=== PATIENT | female | born 1975 | race African-American/Black ===

== ENCOUNTER 2019-11-28 00:40 | Day surgery (SDC) | payer OTHER, SELFPAY ==
[2019-11-21 09:26] VITALS: BMI 27.1
[2019-11-28] VITALS (12 sets, daily range): BP systolic 107–154; BP diastolic 43–77; PULSE 44–60; RESP 13–20; TEMP 36.2–36.9; O2SAT 97–100
[2019-11-28] MEDS: LACTATED RINGERS 1,000 ML 30 ML IV CONT ×2 (06:45→08:27)
--- NOTE | 2019-11-28 07:03 | WPDANESEPPF ---
Anes - Initial Pre Proc Eval Procedure: Operation Date: 11/28/19 07:30 Proposed Procedures p Hysteroscopy, Dilation And Curettage With Myosure, Removal Of Intrauterine Device - Alycia Skinner MD s Possible Laparoscopic Removal Intrauterine Device - Alycia Skinner MD s Laparoscopic Bilateral Tubal Ligation With Fallopian Rings - Alycia Skinner MD Date/Time: 11/28/19 07:03 Surgeon: Alycia Skinner MD Pre Op Diagnosis: Misplaced IUD/Uterine Fibroids/Desires Sterilizati Patient Data Age: 44 Gender: F Height: 5 ft 4 in Weight: 71.67 kg Last Vital Signs Temp 36.9 C 11/28/19 06:49 Pulse 60 11/28/19 06:49 Resp 16 11/28/19 06:49 BP 133/77 11/28/19 06:49 Pulse Ox 100 11/28/19 06:49 Allergies Allergy/AdvReac Type Severity Reaction Status Date / Time Sulfa (Sulfonamide Allergy Mild hives, Verified 11/28/19 06:25 Antibiotics) itching Home Medications Medication Instructions Recorded Confirmed Type darifenacin 15 mg PO DAILY 11/21/19 11/28/19 History ergocalciferol (vitamin D2) 50,000 unit PO 2XW 11/21/19 11/28/19 History Patient hx anesthesia problems: none Family hx anesthesia problems: none Anes - Eval Final PreProcedure Day of Procedure 11/28/19 07:03 Patient weight: overweight Heart: regular rate and rhythm Lungs: clear to auscultation Airway: Mallampati scale class II Neurological: alert and oriented Last oral intake: >/= 8 hours ASA classification: II Emergent: no Anesthetic plan: proceed Anesthesia type and monitoring: general ETT and standard monitoring Informed Consent: The patient's anesthetic plan and its attendant risks and benefits were discussed with the patient/family/POA. Questions were solicited and answers provided to the satisfaction of the patient/family/POA.
--- NOTE | 2019-11-28 07:07 | P.HP_ITS ---
History of Present Illness History of Present Illness Consent: Risks, benefits, and alternatives have been discussed and questions answered. Patient agrees to proceed with procedure. Chief complaint: Misplaced IUD/Uterine Fibroids/Desires Sterilizati Narrative: Jonna Huertas is a 44 year old female with IUD that has had short strings since 6 wks after placement. Last exam no strings visible and u/s states could represent IUD in uterus. KUB shows IUD in upper pelvis consistent with 13 wk size uterus. Patient with heavy cycles lately and u/s also shows know fibroids. Plan hysteroscopic removal of IUD and myosure of submucosal fibroids with D&C as well as laparoscopic BTL and if needed laparoscopic removal of IUD. Reviewed risks of infection, bleeding, injury to organs (eg. bowel, bladder, ureters, uterus, ovaries, and tubes), fluid imbalance, anesthesia, and ectopic vs intrauterine if tubal fails. Patient voices understanding and agrees to proceed. [facility] Past Medical History Medical History (Updated 11/28/19 @ 07:14 by Alycia Skinner MD) (normal spontaneous vaginal delivery) x 2 Surgical History Surgical History (Updated 11/28/19 @ 07:13 by Alycia Skinner MD) Status post breast reduction Meds Home Medications and Allergies Home Medications Medication Instructions Recorded Confirmed Type darifenacin 15 mg PO DAILY 11/21/19 11/28/19 History ergocalciferol (vitamin D2) 50,000 unit PO 2XW 11/21/19 11/28/19 History Allergies Allergy/AdvReac Type Severity Reaction Status Date / Time Sulfa (Sulfonamide Allergy Mild hives, Verified 11/28/19 06:25 Antibiotics) itching Vital Signs Vital Signs - 24 hr 11/28/19 06:49 Temperature 98.4 F Pulse Rate 60 Respiratory Rate 16 Blood Pressure 133/77 Pulse Oximetry 100 Exam Const: General: healthy appearing and alert Orientation/consciousness: patient oriented x3 Resp: Effort & Inspection: normal respiratory effort Auscultation: clear to auscultation bilaterally Cardio: Rate: regular rate Rhythm: regular rhythm GI: GI Palp: Yes Soft to palpation, No Tenderness to palpation present (GI) and No Palpable mass present : External Female Exam: normal external appearance Speculum Exam - Vagina: normal appearance of the vagina and normal vaginal discharge Speculum Exam - Cervix: normal appearance of the cervix (no strings present) Bimanual exam- vagina & uterus: consistency normal and enlarged Bimanual Exam- Adnexa, other: normal adnexae and No adnexal tenderness Neuro: General: patient oriented x3 Assessment and Plan Assessment and plan (1) IUD strings lost: Code(s): T83.32XA - Displacement of intrauterine contraceptive device, initial encounter Status: Acute Assessment and Plan: plan hysteroscopic removal and laparoscopoic removal if needed (2) Fibroids: Code(s): D21.9 - Benign neoplasm of connective and other soft tissue, unspecified Status: Acute Assessment and Plan: If submucosal, plan myosure resection as well as D&C (3) Encounter for sterilization: Code(s): Z30.2 - Encounter for sterilization Status: Acute Assessment and Plan: Plan laparoscopic BTL with falope rings
[2019-11-28] MEDS: IBUPROFEN IV 800 MG/200 ML 800 MG/200 ML BAG 400 MG IVPB (07:46)
--- NOTE | 2019-11-28 08:14 | SUR.OPER ---
Addendum entered by Sveta Hernandez, RN 11/28/19 08:19: AMENDMENT TO ORIGINAL FLUID COUNT: 1800CC OUT OF BAG, 300CC COLLECTED, DR. MA INFORMED, NO FURTHER ORDERS RECEIVED Original Note: EBL:5CC.M HYSTEROSCOPY [id number] OUT OF BAG, 1800CC COLLECTED
--- NOTE | 2019-11-28 08:30 | PM.OP ---
Procedure Note - Brief Procedure Note - Brief Date of procedure: 11/28/19 Pre-op diagnosis: Misplaced IUD/Uterine Fibroids/Desires Sterilizati Post-op diagnosis: same Procedure performed: hysteroscopic removal of IUD; D&C; laparoscopic BTL with falope rings and on L tube cautery Anesthesia: IFEANYI Surgeon: Alycia Skinner MD Estimated blood loss (mL): 5 Drains: No Packing: No Pathology: yes (endometrial) Complications: Other complications (at end of case informed of 1800 cc fluid deficit) Condition: stable Disposition: PACU Findings: uterus 11 cm; IUD in fundus turned 90 degrees with end to patient left cornua and not imbedded; majority of the cavity appears normal; right lower uterine segment with pushing effect from probable intramural fibroid; posterior wall just beyond this is a divet and scarring
--- NOTE | 2019-11-28 09:22 | SUR.PHASEI ---
0922 - DR. PARADA CALLED IN REGARDS TO PT'S B/P OF 38BMP WHEN SLEEPING. HEART RATE 48-52 WHEN AWAKE. NO ORDERS RECEIVED.
[2019-11-28 09:33] LABS: Blood Urea Nitrogen 9 mg/dL (7-17); Calcium 7.6 mg/dL (8.4-10.2); Carbon Dioxide 23 mmol/L (22-30); Chloride 108 mmol/L (98-107); Estimated CRCL calculation 114 ml/min; Estimated Glomerular Filt Rate > 60; Glucose 128 mg/dL (65-105); Potassium 4.1 mmol/L (3.4-5.0); Sodium 135 mmol/L (137-145)
--- NOTE | 2019-11-28 09:43 | SUR.PHASEI ---
0940 - DR. MA CALLED AND INFORMED OF BMP RESULTS. PT'S LUNGS CLEAR. VSS. WILL MONITOR PT IN PACU FOR ONE HOUR ORDERED BY DR. MA
--- NOTE | 2019-11-28 10:06 | SUR.PHASEI ---
1000 - DR. MA AT BEDSIDE TALKING WITH PT.
--- NOTE | 2019-11-28 13:24 | OP_ITS ---
DATE OF PROCEDURE: 11/28/2019 PREOPERATIVE DIAGNOSES: Missing intrauterine device strings, uterine fibroids, requests sterilization. POSTOPERATIVE DIAGNOSES: Missing intrauterine device strings, uterine fibroids, requests sterilization. PROCEDURE: Hysteroscopic removal of IUD, dilatation and curettage, laparoscopic bilateral tubal ligation with Falope rings, and left tube cautery. ANESTHESIA: General with ET tube. FINDINGS: The uterus is 11 cm with the sound. The intrauterine device is noted in the fundus turned 90 degrees with the end pointing to the patient's left cornua. No portion of the IUD appears imbedded in the muscle. The majority of the cavity appears normal. There is a pushing effect from the right lower uterine segment from a probable intramural fibroid and just beyond this on the posterior wall is a divot and some scarring. No discrete lesions are noted. The remainder of the endometrium appears grossly normal. Tubal ostia appear normal. ESTIMATED BLOOD LOSS: 5 cc. PATHOLOGY: Endometrial curettings. DESCRIPTION OF PROCEDURE: The patient was taken to the operating room, placed under anesthesia in the dorsal lithotomy position. She was prepped and draped in the usual sterile fashion. The bladder was drained with a red rubber catheter. The bivalve speculum was placed in the vagina. Cervix was grasped on the anterior lip of the tenaculum. The uterus was sounded to 11 cm. The cervix was serially dilated with Hegars. The diagnostic hysteroscope was placed with the above-stated findings. The intrauterine device strings were grasped with a hysteroscopic grasper. The IUD and hysteroscope were removed. The IUD was removed intact. The hysteroscope was replaced to further evaluate the intrauterine cavity. No submucosal fibroids were noted. The hysteroscope was removed. The medium sharp curette was used to sharply curette the endometrium until a good uterine cry was noted in all areas. The [place] manipulator was then placed. The speculum was removed. Attention was turned to the abdomen. A vertical skin incision was made at the base of the umbilicus. The abdomen was tented. The Veress needle was placed. Water drop test was normal. Opening patient pressure was 7 mmHg. Pneumoperitoneum was obtained to a patient pressure of 15 mmHg. The Veress needle was removed. The 5 mm Optiview trocar was placed. Intraabdominal placement was confirmed with the laparoscope. The patient was placed in Trendelenburg. The 8 mm trocar was placed 2 cm above the symphysis pubis. Under direct visualization, the blunt probe was used to bring the tubes into view. The tubes were noted to be short and the distal 2/3rd were noted to have hydrosalpinx bilaterally. The right tube was grasped with the ring applicator near the fundus at the smallest appearing portion of the tube. The ring applicator was applied. A good loop of tube was noted within the ring. The left tube was grasped and while bringing the tube into the applicator, the applicator sliced the tube in half. The ring was applied and appeared to be mainly on the distal portion of the tube. The Kleppingers was then used to cauterize the tube in 4 locations; 2 above the slice and 2 below the slice. Good hemostasis was noted. Good cautery effect was noted at all areas. The instruments were then removed. Pneumoperitoneum was reduced. Skin incisions were closed using 4-0 nylon in an interrupted fashion. Vaginal instruments were removed. As I was leaving the operating room suite, the reed man informed me of an 1800 cc fluid deficit. Upon review with the reed man, it was noted that 2 L were used during the hysteroscope and only 200 cc were returned in the canister. I was unaware of the deficit until this point. Basic metabolic panel and extended
== END 2019-11-28 11:47 | disposition home or self-care (01) ==
PROVIDERS: Visit Provider Obstetrics & Gynecology Gynecology
PROC: 0U5B8ZZ Destruction of Endometrium, Via Natural or Artificial Opening Endoscopic (ICD-10-PCS; CPT 58563; principal; 2019-11-28 07:30)
PROC: (CPT 49320; 2019-11-28 07:30)
PROC: (CPT 58671; 2019-11-28 07:30)
DX: T83.32XA Displacement of intrauterine contraceptive device, initial encounter (principal); Y84.8 Other medical procedures as the cause of abnormal reaction of the patient, or of later complication, without mention of misadventure at the time of the procedure; D25.9 Leiomyoma of uterus, unspecified; Z30.2 Encounter for sterilization; N70.11 Chronic salpingitis; N85.8 Other specified noninflammatory disorders of uterus
CPT/HCPCS: 58558; 58671; 36415; 80048; 88305; A4264; A9270; J1100; J1741; J2250; J2405; J2704; J2710; J3010; J7030; J7120